=== PATIENT | male | born 1960 | race Caucasian/White ===

== ENCOUNTER → 2019-04-03 | Outpatient (CLI) | payer BC ==
--- NOTE | 2019-04-03 15:04 | REP ---
PET/CT: History: Other nonspecific abnormal finding of the lung field. Right upper lobe nodule. Comparisons: Comparison CT studies of the chest are reviewed from [facility] dated February 08, 2019 and December 27, 2018. TECHNIQUE: 52 minutes following the intravenous injection of a 9.26 mCi dose of F-18 FDG, three-dimensional PET scintigraphy is acquired from the skull base to the proximal thighs. Triplanar noncontrast CT scanning is acquired through the same anatomic range for attenuation correction, and image registration with scan parameters optimized to minimize radiation exposure to the patient. PET scintigraphy and CT datasets were fused and displayed on a workstation with multiplanar and projection display capability. PET/CT Findings: The known spiculated cavitary right upper lobe lesion shows visible but not hypermetabolic FDG accumulation. Maximum standard uptake value within this is 1.99. There is a similar degree of discernible although non-hypermetabolic uptake and some left apical pleuroparenchymal fibrosis. Maximum standard uptake value here is 2.11. There is multifocal calcific pleural plaquing in the left chest and biapical bullous formation and fibrosis is seen with evidence of COPD. No abnormal hypermetabolic uptake is seen in hilar or mediastinal region. No other abnormal hypermetabolic uptake is seen in the chest. The head and neck soft tissues are unremarkable. In the abdomen and pelvis, no abnormal hypermetabolic uptake is seen. The patient is status post cholecystectomy. No abnormal adrenal uptake is seen. PET/CT is otherwise unremarkable. Impression: The right upper lobe cavitary lesion shows visible but not hypermetabolic FDP accumulation. Malignancy cannot be completely excluded. There is a contralateral area of what appears to be pleural parenchymal fibrosis in the left apex with a similar degree of non-hypermetabolic but visible uptake. Electronically Signed by Sebastian Philip MD 04/03/2019 10:31 P
== END ==
LOC: M PLARAD 10:06
PROVIDERS: ATTEND Internal Medicine Pulmonary Disease
DX: R91.8 Other nonspecific abnormal finding of lung field (principal)
CPT/HCPCS: 78815; A9552

== ENCOUNTER → 2020-10-29 | Outpatient (CLI) | payer BC ==
--- NOTE | 2020-10-30 05:06 | REP ---
INDICATION: PERSONAL HX NICOTINE DEPENDENCE COMPARISON: 12/27/2018 TECHNIQUE: Axial noncontrast images from the thoracic inlet to the upper abdomen using low-dose lung screening technique (LDCT). FINDINGS: Advanced emphysematous changes are again appreciated with scattered bullae, scarring and fibrosis. Somewhat nodular right apical fibrotic changes are again noted and essentially unchanged as compared to 12/27/2018. No new suspicious area of consolidation, nodule or mass lesion identified. No effusion. No pneumothorax. Tracheobronchial tree is patent. Mediastinum demonstrates atherosclerotic changes to the thoracic aorta and coronary arteries without cardiomegaly. Osseous structures demonstrate age-related changes without acute abnormality. IMPRESSION: Chronic advanced emphysematous changes with primarily biapical scarring exhibiting nodular components which are unchanged as compared through 12/27/2018. Lung-RADS category 2. Annual low-dose CT surveillance recommended. <Electronically signed by Collins Trujillo > 10/30/20 [id number]
== END ==
LOC: M RAD 10:46
PROVIDERS: ATTEND Internal Medicine Pulmonary Disease
DX: Z12.2 Encounter for screening for malignant neoplasm of respiratory organs (principal); Z87.891 Personal history of nicotine dependence; J43.9 Emphysema, unspecified

== ENCOUNTER → 2021-06-13 | Outpatient (CLI) | payer BC ==
--- NOTE | 2021-06-15 16:59 | SLEEPCENT ---
DATE: 06/13/2021 POLYSOMNOGRAPHY CPAP TITRATION ORDERED BY: Dusty Rodarte DO, [facility] Nocturnal polysomnography was performed for the titration of pressure therapy in this patient with obstructive sleep apnea syndrome. For testing the patient was fit with a ResMed F20 full face mask of medium size, 4 cm of water pressure were initially applied to the circuit, and the lights were extinguished. Seven hours and 9 minutes of data were reviewed. There were 300.5 minutes of sleep identified. Sleep latency was mildly prolonged at 15.5 minutes. REM latency was also prolonged at 202 minutes. Sleep architecture improved late in the study. There were periods of wake resulting in a reduced sleep efficiency of 71%. The electrocardiogram showed a sinus rhythm with an average heart rate of 68 beats per minute. EEG showed normal waveforms for wake and sleep. Persistence of respiratory events prompted an increase in CPAP pressure and despite optimal mask fit and minimal air leak, the patient was changed to a bilevel device. Best sleep was seen on a bilevel pressure of inspiratory 12 over expiratory of 8 with which pressure the patient slept through REM without respiratory events or oxygen desaturation. IMPRESSION: Obstructive sleep apnea syndrome (G47.33). RECOMMENDATION: Nightly use of bilevel pressure therapy inspiratory [address] Saleh
== END ==
LOC: M SLEEP 20:00
PROVIDERS: ATTEND Internal Medicine Pulmonary Disease
DX: G47.33 Obstructive sleep apnea (adult) (pediatric) (principal)